=== PATIENT | male | born 1970 | race Two or more races ===

== ENCOUNTER 2022-02-07 10:30 | Inpatient (IN) | payer OTHER ==
[~2022-02-07] VITALS: Ht 170.2 cm; Wt 87.5 kg
[2022-02-07] MEDS ORDERED: JARDIANCE10 MG PO (12:44)
[2022-02-07] MEDS ORDERED: LIPITOR20 MG PO (12:44)
[2022-02-11] MEDS ORDERED: ABATINEX680 MG (11:50)
[2022-02-11] MEDS ORDERED: FAMOTIDINE20 MG (11:50)
[2022-02-14] MEDS ORDERED: HYOSCYAMINE0.125 M1 SL (12:30)
[2022-02-14] MEDS ORDERED: ULTRACET PO (12:31)
== END 2022-02-14 14:06 | disposition home or self-care (01) | DRG 331 ==
LOC: O/R 02-11 07:24 → SURH 02-11 10:30
PROVIDERS: ADMIT Surgery; ATTEND Surgery
PROC: 0DBP4ZZ Excision of Rectum, Percutaneous Endoscopic Approach (ICD-10-PCS; 2022-02-11)
PROC: 0DJD8ZZ Inspection of Lower Intestinal Tract, Via Natural or Artificial Opening Endoscopic (ICD-10-PCS; 2022-02-11)
PROC: 0DTN4ZZ Resection of Sigmoid Colon, Percutaneous Endoscopic Approach (ICD-10-PCS; principal; 2022-02-11 11:15)
DX: K57.20 Diverticulitis of large intestine with perforation and abscess without bleeding (principal); Z20.822 Contact with and (suspected) exposure to COVID-19